=== PATIENT | male | born 1995 | race Caucasian/White ===

== ENCOUNTER 2018-02-18 17:12 | Emergency (ER) | payer OTHER ==
[2018-02-18] MEDS ORDERED: HYDROcod/ACETAM 5/325 MG TABLET PO STA (17:24)
[2018-02-18] MEDS ORDERED: IBUPROFEN 400 MG TABLET PO STA (17:24)
--- NOTE | 2018-02-18 17:27 | ED Physician Documentation ---
History of Present Illness - Stated complaint Stated Complaint: L HIP INJURY - Chief complaint Chief Complaint: Ext Problem - Additonal information Additional information: hx from pt 22 male was hiking at [place] and fell of a rock and fell about 15 ft and landed on L hip[ severe pain unable to walk friends had to drag him back to the car then they stopped at [employer] on the way here and he ate the fries and still has the burger in the car no head neck chest abd pain Review of Systems Ears: denies: Drainage/discharge Nose: denies: Epistaxis Cardiac: denies: Chest pain / pressure GI: denies: Abdominal Pain Musculoskeletal: reports: Extremity pain, Joint pain Neurologic: denies: Focal weakness, Numbness Endocrine: denies: Easy bruising / bleeding Immunocompromised: denies: Immunocompromised PD PAST MEDICAL HISTORY - Past Medical History Past Medical History: No - Past Surgical History Past Surgical History: No - Present Medications Home Medications: Ambulatory Orders Medication Instructions Recorded Confirmed No Known Home Medications [No 02/18/18 02/18/18 Known Home Medications] - Allergies Allergies/Adverse Reactions: Allergies Allergy/AdvReac Type Severity Reaction Status Date / Time lavender (Lavandula Allergy Hives Verified 02/18/18 17:18 angustifolia) Sulfa (Sulfonamide Allergy Unknown Verified 02/18/18 17:18 Antibiotics) - Social History Does the pt smoke?: No Smoking Status: Never smoker Does the pt drink ETOH?: No Does the pt have substance abuse?: No - Immunizations Immunizations are current?: Yes - POLST Patient has POLST: No PD ED PE NORMAL - Vitals Vital signs reviewed: Yes - General General: Alert and oriented X 3 - HEENT HEENT: PERRL - Neck Neck: No bony TTP - Cardiac Cardiac: RRR - Respiratory Respiratory: No respiratory distress, Clear bilaterally - Abdomen Abdomen: Non tender - Back Back: No spinal TTP - Extremities Extremities: Other (L hip TTP medially / inguinal crease and help slightly ext rotates and ABD and flexed and resists any movement, femur knee tib fib ankle foot NT, MSV intact) Results - Vitals Vitals: Vital Signs - 24 hr 02/18/18 02/18/18 17:16 22:05 Temperature 36.7 C 36.5 C Heart Rate 94 69 Respiratory 16 18 Rate Blood Pressure 126/70 125/58 L O2 Saturation 100 100 Oxygen O2 Source Room air - Labs Labs: Laboratory Tests 02/18/18 02/18/18 02/18/18 18:35 18:35 19:00 WBC 13.0 H RBC 4.42 L Hgb 13.6 L Hct 39.4 L MCV 89.1 MCH 30.7 MCHC 34.4 RDW 12.9 Plt Count 205 MPV 7.9 Neut # (Auto) 10.9 H Lymph # (Auto) 1.0 L [place] # (Auto) 1.0 Eos # (Auto) 0.1 Baso # (Auto) 0.0 Absolute Nucleated RBC 0.00 Nucleated RBC % 0.0 Sodium 137 Potassium 3.9 Chloride 103 Carbon Dioxide 27 Anion Gap 7.0 BUN 16 Creatinine 1.0 Estimated GFR (MDRD) 93 Glucose 159 H Calcium 9.3 Blood Type O POSITIVE Antibody Screen NEGATIVE - Rads (name of study) CTH Radiology: See rad report (no acute) CTCS Radiology: See rad report (neg ) CTAP Radiology: See rad report (acute non displaced L femoral neck fx, otherwsie no acute) hip pelvis Radiology: See rad report (acute non displaced left femoral neck fx) CT chest Radiology: Other (pending and turned over to next shift to follow up ) PD MEDICAL DECISION MAKING - ED course ED course: appears to be an isolated injury given 15 ft fall with enough force to cause a hip fx in a healthy 21 male and given that hip fx could mask other injuries ordered garsia scan (neg) also blood work and type and screen called ortho relationship counselor for Sebastian Villanueva and she advises pt needs to be transferred to a tertiary care / major trauma center for repair. so called [facility] approx 1900 - full and boarding 20 - can accept but respectfully request that this may be something other facilities can well manage pt is ALLISON Moreno so called [facility] and ortho at [facility] accepts pt in transfer - I spoke to ortho answered all questions, reviewed all results available and transfer RN Cortes confirms bed availability on 7th floor Brittani complete pt updated turned over to Dr Poe pending transport by [facility] to [facility] - emphasized to [employer] need to transfer expeditiously as there is a time frame to get this injury repaired per ortho CT chest was pending at time I turned pt over per Dr Poe fax from [facility] = no acute process - Sepsis Event Vital Signs: Vital Signs - 24 hr 02/18/18 02/18/18 17:16 22:05 Temperature 36.7 C 36.5 C Heart Rate 94 69 Respiratory 16 18 Rate Blood Pressure 126/70 125/58 L O2 Saturation 100 100 Oxygen O2 Source Room air Departure - Departure Disposition: 02 Transfer Acute Care Hosp Clinical Impression: Hip fracture Qualifiers: Encounter type: initial encounter Fracture type: closed Laterality: left Qualified Code(s): S72.002A - Fracture of unspecified part of neck of left femur , initial encounter for closed fracture Discharge Date/Time: 02/18/18 22:11
--- NOTE | 2018-02-18 18:12 | XRAY Report ---
Procedure Date: 02/18/2018 Accession Number: [id number] / [id number] Procedure: XR - Hip w/Pelvis 2-3V LT CPT Code: FULL RESULT: EXAM: LEFT HIP AND PELVIS RADIOGRAPHY EXAM DATE: 02/18/2018 05:57 PM. HISTORY: Fell 15 ft at [facility]. COMPARISONS: None. TECHNIQUE: 1 view of the pelvis and 1 view of the hip. FINDINGS: Bones: There is an acute nondisplaced midcervical femoral neck fracture on the left. Minimal valgus angulation. Joints: The bilateral hip, pubis symphysis, and sacroiliac joints are preserved. Soft Tissues: Normal. No soft tissue swelling. IMPRESSION: Acute nondisplaced left femoral neck fracture. RADIA
[2018-02-18 18:42] LABS: BASOPHILS % (AUTO) 0.3 %; EOSINOPHILS # (AUTO) 0.1 10^3/uL (0.0-0.7); EOSINOPHILS % (AUTO) 0.8 %; HGB - HEMOGLOBIN 13.6 g/dL (14.0-18.0); LYMPHOCYTES % (AUTO) 7.6 %; MEAN CORPUSCULAR HEMOGLOBIN 30.7 pg (27.0-31.0); MEAN CORPUSCULAR HGB CONC 34.4 g/dL (32.0-36.0); MEAN CORPUSCULAR VOLUME 89.1 fL (80.0-94.0); MEAN PLATELET VOLUME 7.9 fL (7.4-11.4); MONOCYTES % (AUTO) 7.8 %; NEUTROPHILS # (AUTO) 10.9 10^3/uL (1.5-6.6); NEUTROPHILS % (AUTO) 83.5 %; PLT - PLATELET COUNT 205 10^3/uL (130-450); RED BLOOD COUNT 4.42 10^6/uL (4.70-6.10); RED CELL DISTRIBUTION WIDTH 12.9 % (12.0-15.0)
[2018-02-18] MEDS ORDERED: MORPHINE 2 MG/ML SYRINGE IVP STA (18:49)
[2018-02-18] MEDS ORDERED: ONDANSETRON 4 MG/2 ML VIAL IVP STA (18:49)
[2018-02-18] MEDS ORDERED: SODIUM CHLORIDE 0.9% 1,000 ML IV ONE (18:49)
[2018-02-18 18:50] LABS: CALCIUM 9.3 mg/dL (8.5-10.3)
[2018-02-18] MEDS ORDERED: IOPAMIDOL-300 100 ML VIAL ONE (18:51)
[2018-02-18] MEDS ORDERED: IOPAMIDOL-300 100 ML VIAL IVP ONE (19:22)
--- NOTE | 2018-02-18 19:46 | CT Report ---
Procedure Date: 02/18/2018 Accession Number: [id number] / [id number] Procedure: CT - Cervical Spine W/O CPT Code: FULL RESULT: EXAM: CT CERVICAL SPINE WITHOUT CONTRAST DATE: 02/18/2018 07:29 PM. HISTORY: Fell 15 ft , hip fx, transfer to trauma center. COMPARISONS: CERVICAL SPINE W/O 02/18/2018. TECHNIQUE: Thin-section axial images were acquired of the cervical spine without contrast. Post-processing: Coronal and sagittal reformats. Other: None. In accordance with CT protocol optimization, one or more of the following dose reduction techniques were utilized for this exam: automated exposure control, adjustment of mA and/or KV based on patient size, or use of iterative reconstructive technique. FINDINGS: Alignment: No scoliosis or spondylolisthesis. Bones: No fracture or bone lesion. Interspace Levels/Facets: Disk height is preserved. Facet joints appear normal in alignment. No central spinal canal stenosis. Musculature: Normal. No fatty atrophy. Other: The paravertebral and prevertebral soft tissues are unremarkable. The lung apices are clear. IMPRESSION: Negative cervical spine. RADIA
--- NOTE | 2018-02-18 19:57 | CT Report ---
Procedure Date: 02/18/2018 Accession Number: [id number] / [id number] Procedure: CT - Abdomen/Pelvis W/ CPT Code: FULL RESULT: EXAM: CT ABDOMEN AND PELVIS EXAM DATE: 02/18/2018 07:29 PM. CLINICAL HISTORY: Fell 15 ft , hip fx, transfer to trauma center. COMPARISONS: None. TECHNIQUE: Routine helical CT imaging was performed through the abdomen and pelvis. IV contrast: 100 cc Isovue-300. Enteric contrast: No. Reconstructions: Coronal and sagittal. In accordance with CT protocol optimization, one or more of the following dose reduction techniques were utilized for this exam: automated exposure control, adjustment of mA and/or KV based on patient size, or use of iterative reconstructive technique. FINDINGS: Lung Bases: Unremarkable. Liver: Normal. No masses. Gallbladder/Bile Ducts: Unremarkable. Spleen: Normal. Pancreas: Normal. Adrenal Glands: Normal. Kidneys: Normal. No masses or hydronephrosis. Peritoneal Cavity/Bowel: Normal. No free fluid, free air or adenopathy. No masses or acute inflammatory process. The appendix is well visualized and normal. Pelvic Organs: Normal. The bladder and visualized pelvic organs are within normal limits. Vasculature: No aneurysms or other significant abnormality. Bones: Acute nondisplaced left femoral neck fracture. Other: None. IMPRESSION: 1. Acute nondisplaced left femoral neck fracture. 2. Otherwise unremarkable CT abdomen and pelvis. RADIA
--- NOTE | 2018-02-18 19:57 | CT Report ---
Procedure Date: 02/18/2018 Accession Number: [id number] / [id number] Procedure: CT - Head W/O CPT Code: FULL RESULT: EXAM: CT HEAD EXAM DATE: 02/18/2018 07:29 PM. CLINICAL HISTORY: Fell 15 ft , hip fx, transfer to trauma center. COMPARISON: CERVICAL SPINE W/O 02/18/2018 HEAD W/O 02/18/2018. TECHNIQUE: Multiaxial CT images were obtained from the foramen magnum to the vertex. Reformats: Sagittal and coronal. IV contrast: None. In accordance with CT protocol optimization, one or more of the following dose reduction techniques were utilized for this exam: automated exposure control, adjustment of mA and/or KV based on patient size, or use of iterative reconstructive technique. FINDINGS: Parenchyma: No intraparenchymal hemorrhage. No evidence of mass, midline shift, or CT findings of infarction. Bunn-white differentiation is distinct. Extraaxial Spaces: Normal for age. No subdural or epidural collections identified. Ventricles: Normal in size and position. Sinuses and Orbits: There is bilateral ethmoid sinus inflammatory disease. Bones: No evidence of fracture or calvarial defect. Other: None. IMPRESSION: Negative for acute or focal intracranial abnormality. RADIA
[2018-02-18 22:06] VITALS: BP 125/58
--- NOTE | 2018-02-20 19:16 | CT Report ---
Procedure Date: 02/18/2018 Accession Number: [id number] / [id number] Procedure: CT - Chest Angio (AORTA) CPT Code: FULL RESULT: EXAM: CTA CHEST EXAM DATE: 02/18/2018 07:29 PM. CLINICAL HISTORY: 15 FT FALL.. COMPARISON: None. TECHNIQUE: Prior to and following intravenous administration of unspecified volume and type IV contrast, multiplanar 3D/MIP reconstruction of the thoracic aorta was performed. In accordance with CT protocol optimization, one or more of the following dose reduction techniques were utilized for this exam: automated exposure control, adjustment of mA and/or KV based on patient size, or use of iterative reconstructive technique. FINDINGS: Vascular Structures: There is normal enhancement of the thoracic aorta. The aorta appears normal. The aortic arch branches appear patent proximally no pulmonary embolism. Proximal abdominal aorta appears normal. Negative for pulmonary embolism. Lungs/Pleura: No consolidation, nodules, or edema. No effusions or pneumothorax. Mediastinum: Normal. No cardiac enlargement or adenopathy. Upper Abdomen: Unremarkable. Other: None. IMPRESSION: Normal CT. RADIA
== END 2018-02-18 22:11 | disposition short-term general hospital (02) ==
LOC: ED 17:12
DX: S72.002A Fracture of unspecified part of neck of left femur, initial encounter for closed fracture (principal); W17.89XA Other fall from one level to another, initial encounter; Y93.01 Activity, walking, marching and hiking; Y92.830 Public park as the place of occurrence of the external cause; Y99.8 Other external cause status
CPT/HCPCS: 36415; 70450; 71275; 72125; 73502; 74177; 80048; 85025; 86850; 86900; 86901; 96361; 96374; 99283; 99284; A9270; J2270; Q9967

== ENCOUNTER 2018-04-07 14:13 | Outpatient (CLI) | payer OTHER | END 2018-04-07 14:14 | disposition home or self-care (01) | LOC: LAB 14:13 | PROVIDERS: ATTEND Orthopaedic Surgery | DX: R07.9 Chest pain, unspecified (principal) | CPT/HCPCS: 36415; 85379 ==